=== PATIENT | male | born 1970 | race Caucasian/White ===

== ENCOUNTER 2024-06-24 11:17 | Emergency (ER) | payer SELFPAY ==
[~2024-06-24] VITALS: Ht 182.9 cm; Wt 127.2 kg
[2024-06-24] MEDS ORDERED: METFORMIN HCL500 MG PO (12:18)
[2024-06-24] MEDS ORDERED: PREDNISONE20 MG PO (18:09)
[2024-06-24 18:19] VITALS: BP 145/80
--- OUTSIDE RECORDS SUMMARY | 2024-06-24 18:26 | XMS ---
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 Richard VISIT COUNT (12 MO.) 2 [facility] 1 [facility] TOTAL 3 NOTE: Visits indicate total known visits. ED/UCC VISIT TRACKING (12 MO.) 06/24/2024 11:18 [facility] [place] TYPE: Emergency COMPLAINT: - LT LEG PAIN 06/16/2024 16:02 [facility] DIAGNOSES: - Pain in left thigh - LEFT THIGH PAIN 08/14/2023 10:12 [facility] [place] TYPE: Emergency DIAGNOSES: - Palpitations - IRREGULAR HEART BEAT INPATIENT VISIT TRACKING (12 MO.) No inpatient visits to display in this time frame [email or web address]
== END 2024-06-24 18:20 | disposition home or self-care (01) ==
LOC: ED 11:17
DX: M79.652 Pain in left thigh (principal); I10 Essential (primary) hypertension; Z79.84 Long term (current) use of oral hypoglycemic drugs; Z88.0 Allergy status to penicillin; Z88.1 Allergy status to other antibiotic agents; Z88.8 Allergy status to other drugs, medicaments and biological substances
CPT/HCPCS: 99282